=== PATIENT | male | born 1995 | race American Indian/Alaskan Native ===

== ENCOUNTER 2018-01-22 12:38 | Emergency (ER) | payer SELFPAY ==
[2018-01-22 12:58] VITALS: BP 134/80
[2018-01-22] MEDS ORDERED: ZOFRAN IV ONE (13:03)
[2018-01-22] MEDS ORDERED: DILAUDID IV ONE (13:03)
[2018-01-22] MEDS ORDERED: TORADOL IV ONE (13:03)
[2018-01-22] MEDS ORDERED: ATIVAN IV ONE (13:07)
[2018-01-22] MEDS ORDERED: NACL 0.9% 1000 ML 1,000 ML IV ONE (13:07)
[2018-01-22] MEDS ORDERED: MORPHINE IV ONE (13:07)
[2018-01-22] MEDS ORDERED: TORADOL ONE (13:28)
[2018-01-22] MEDS ORDERED: ZOFRAN ONE (13:29)
[2018-01-22] MEDS ORDERED: MORPHINE ONE (13:29)
[2018-01-22] MEDS ORDERED: ATIVAN ONE (13:29)
[2018-01-22] MEDS ORDERED: NACL 0.9% 1000 ML 1,000 ML ONE (13:30)
--- NOTE | 2018-01-22 14:41 | Emergency Department Report ---
HPI - General Chief Complaint: Dental/Oral Time Seen by Provider: 01/22/18 13:06 - HPI HPI: The patient is a 22-year-old male presents for evaluation of left jaw pain. The patient reports sudden onset of left jaw pain 30 minutes prior to arrival, constant since onset, chest and since severity, sharp and throbbing in quality, exacerbated with to the movement of the mouth. He states that he has been unable to close his mouth since onset, and that he has a history of right jaw dislocations. He denies trauma to the jaw, face, head, swelling, redness, chills, night sweats, fever. ED Past Medical Hx - Past Medical History Hx Seizures: Yes Hx Psychiatric Treatment: No - Surgical History Past Surgical History?: No - Social History Smoking Status: Current Some Day Smoker Substance Use Type: Marijuana - Medications Home Medications: Home Medications Medication Instructions Recorded Confirmed Last Taken Type levETIRAcetam [Keppra] 500 mg PO BID #90 tablet 02/26/14 10/27/15 Unknown Rx levETIRAcetam [Keppra TAB] 500 mg PO BID #60 tablet 10/28/15 Unknown Rx Ibuprofen [Motrin] 800 mg PO Q8HR PRN #15 tablet 01/22/18 Unknown Rx ED Review of Systems ROS: Stated complaint: LOCK JAW Other details as noted in HPI Constitutional: denies: fever ENT: reports jaw pain denies: throat or neck pain Respiratory: denies: cough, shortness of breath Cardiovascular: denies: chest pain Endocrine: denies unexplained weight loss or gain Gastrointestinal: denies: abdominal pain, nausea Genitourinary: denies: dysuria Musculoskeletal: denies: leg swelling Skin: denies: rash Neurological: denies: headache Hematological/Lymphatic: denies: easy bleeding or easy bruising Psych: denies sadness or hopelessness Physical Exam - Physical Exam Vital Signs: Vital Signs 01/22/18 01/22/18 12:53 13:59 Pulse Rate 64 Respiratory 18 Rate Blood Pressure 134/80 O2 Sat by Pulse 96 100 Oximetry Physical Exam: General: well-nourished, well-developed, no acute distress Head: Normocephalic, atraumatic Eyes: normal sclera HEENT: Mucous membranes are pink and moist, patient unable to close jaw, tenderness to palpation presents to the left TMJ Neck: trachea midline, neck supple, No neck stiffness, no cervical adenopathy Respiratory: Breath sounds equal bilaterally, no wheezing, rales, or rhonchi Cardio: S1 and S2 present, no murmurs, rubs, gallops, capillary refill is brisk Musc: No pitting edema Skin: No rash Neuro: no facial drooping, normal speech Psych: Normal affect ED Course Vital Signs 01/22/18 01/22/18 12:53 13:59 Pulse Rate 64 Respiratory 18 Rate Blood Pressure 134/80 O2 Sat by Pulse 96 100 Oximetry ED Medical Decision Making - Medical Decision Making The patient was seen and examined by myself. The patient is placed on a grade checker and continuous pulse ox. On initial evaluation, the patient was found to be in no distress. Evaluation orders were placed. The patient given pain medicine. CT scan of the face revealed bilateral mandibular condyle anterior dislocations. The patient was reevaluated and he shared that his jaw dislocation spontaneously reduced. The patient was reevaluated and reported that their symptoms were markedly improved. The patient is stable for discharge with outpatient follow-up. The patient is given follow-up and return instructions. The patient expressed understanding and agreed with the plan. The patient is discharged in stable condition. Critical care attestation.: If time is entered above; I have spent that time in minutes in the direct care of this critically ill patient, excluding procedure time. ED Disposition Clinical Impression: Sprain of jaw, left side, initial encounter Qualifiers: Encounter type: initial encounter Qualified Code(s): S03.42XA - Sprain of jaw, left side, initial encounter Closed dislocation of mandible Qualifiers: Encounter type: initial encounter Qualified Code(s): S03.00XA - Dislocation of jaw, unspecified side, initial encounter Disposition: - TO HOME OR SELFCARE Is pt being admited?: No Does the pt Need Aspirin: No Condition: Stable Instructions: Mandibular Dislocation (ED), Temporomandibular Disorder (ED) Referrals: [facility] [Outside] - 3-5 Days Forms: Work/School Release Form(ED) Time of Disposition: 14:42
--- NOTE | 2018-01-22 14:50 | Cat Scan Report ---
FINAL REPORT PROCEDURE: CT FACIAL BONES WO CON TECHNIQUE: Computerized tomography of the facial bones and soft tissues with axial and coronal sections performed from the cranial aspect of the frontal sinuses to the caudal portion of the mandible without contrast material. HISTORY: left jaw pain, unable to close mouth COMPARISON: No prior studies are available for comparison. FINDINGS: No fracture is seen. Mandibular condyles are translocated anteriorly more than expected. The mandibular condyle on the right projects along the anterior aspect of the condylar eminence. This is slightly more prominent on the left than the right. The glenoid fossa bilaterally are normal in appearance. The orbits, the zygomas and zygomatic arches as well as the nasal bone new of the paranasal sinuses appear intact. Paranasal sinuses are clear. IMPRESSION: Exaggerated anterior translocation of the mandibular condyles bilaterally. The condyles appear to be dislocated anteriorly. No fractures of the mandible or mandibular condyles are visualized. No facial fractures are seen.
== END 2018-01-22 15:01 | disposition home or self-care (01) ==
LOC: ED 12:38
DX: S03.02XA Dislocation of jaw, left side, initial encounter (principal); F17.200 Nicotine dependence, unspecified, uncomplicated; F12.10 Cannabis abuse, uncomplicated; X58.XXXA Exposure to other specified factors, initial encounter; Y93.89 Activity, other specified; Y99.8 Other external cause status; Y92.89 Other specified places as the place of occurrence of the external cause
CPT/HCPCS: 70486; 96361; 96374; 96375; 99284; J1885; J2060; J2270; J2405; J7030

== ENCOUNTER 2018-06-18 07:38 | Emergency (ER) | payer SELFPAY ==
[2018-06-18 07:45] VITALS: BP 133/80
== END 2018-06-18 08:10 | disposition left against medical advice (07) ==
LOC: ED 07:38
DX: R68.84 Jaw pain (principal); Z53.21 Procedure and treatment not carried out due to patient leaving prior to being seen by health care provider

== ENCOUNTER 2019-05-08 10:49 | Emergency (ER) | payer SELFPAY ==
[2019-05-08] MEDS ORDERED: DIPRIVAN 10 MG/ML IV ONE (11:43)
[2019-05-08] MEDS ORDERED: KEPPRA 1,000 MG/NS 0.75% 100ML 1,000 MG/100 ML BAG IV ONE (11:43)
[2019-05-08] MEDS ORDERED: SUBLIMAZE IV ONE (11:43)
[2019-05-08] MEDS ORDERED: NACL 0.9% 500 ML 500 ML IV ONE (11:44)
[2019-05-08] MEDS ORDERED: ZOFRAN IV ONE (11:44)
[2019-05-08] MEDS ORDERED: BOOSTRIX IM ONE (11:45)
--- NOTE | 2019-05-08 11:46 | Emergency Department Report ---
ED General Adult HPI - General Chief complaint: Seizure Stated complaint: SEIZURE/R DISLOCATED SHOULDER Time Seen by Provider: 05/08/19 11:27 Source: [place], [place] [facility], old records reviewed Mode of arrival: Stretcher Limitations: Physical Limitation - History of Present Illness Initial comments: This is a 23-year-old gentleman. This patient is not known to this provider previously. He does not have a primary care doctor. He thinks he is right-hand dominant. He reportedly has a history of seizure, and has not taken seizure medicine for about 2 years. Patient states being in his usual state of health earlier on this morning, and he feels like he had a seizure. He thinks that he fell onto his face and head. He has no midline neck pain. He has right-sided shoulder pain. He denies extremity weakness, numbness. He last ate last night. He can't recall his last tetanus vaccination status. He indicates his last convulsive event was around 2 years ago. He denies urinary symptoms. He denies lower extremity symptoms. He denies chest pain and abdominal pain. He has superficial abrasions on the face. -: Sudden Location: face, right, upper extremity Radiation: non-radiation Quality: aching Consistency: intermittent Improves with: rest Worsens with: movement - Related Data Previous Rx's Medication Instructions Recorded Last Taken Type levETIRAcetam [Keppra TAB] 500 mg PO BID #60 tablet 10/28/15 Unknown Rx Ibuprofen [Motrin 800 MG tab] 800 mg PO Q8HR PRN #15 tablet 12/20/18 Unknown Rx Acetaminophen [Non-Aspirin Extra 500 mg PO Q6HR PRN #30 tablet 05/08/19 Unknown Rx Strength] Ibuprofen [Motrin] 600 mg PO Q8H PRN #30 tablet 05/08/19 Unknown Rx Magnesium Oxide [Mag-Ox] 400 mg PO QDAY #14 tablet 05/08/19 Unknown Rx Potassium Chloride [K-Dur] 40 meq PO QDAY #15 tablet 05/08/19 Unknown Rx levETIRAcetam [Keppra TAB] 500 mg PO BID #60 tablet 05/08/19 Unknown Rx Allergies Allergy/AdvReac Type Severity Reaction Status Date / Time No Known Allergies Allergy Verified 05/08/19 11:47 ED Review of Systems ROS: Stated complaint: SEIZURE/R DISLOCATED SHOULDER Other details as noted in HPI Constitutional: denies: fever Eyes: denies: eye pain, eye discharge, vision change ENT: other (lip abrasion, superior lip pain). denies: dental pain Respiratory: denies: wheezing Cardiovascular: denies: chest pain Gastrointestinal: denies: vomiting Genitourinary: denies: dysuria Musculoskeletal: arthralgia, myalgia Skin: rash Neurological: denies: weakness, numbness, paresthesias, confusion Psychiatric: anxiety ED Past Medical Hx - Past Medical History Hx Seizures: Yes Hx Psychiatric Treatment: No Additional medical history: jaw injury - Social History Substance Use Type: Marijuana - Medications Home Medications: Home Medications Medication Instructions Recorded Confirmed Last Taken Type levETIRAcetam [Keppra TAB] 500 mg PO BID #60 tablet 10/28/15 Unknown Rx Ibuprofen [Motrin 800 MG tab] 800 mg PO Q8HR PRN #15 tablet 12/20/18 Unknown Rx Acetaminophen [Non-Aspirin Extra 500 mg PO Q6HR PRN #30 tablet 05/08/19 Unknown Rx Strength] Ibuprofen [Motrin] 600 mg PO Q8H PRN #30 tablet 05/08/19 Unknown Rx Magnesium Oxide [Mag-Ox] 400 mg PO QDAY #14 tablet 05/08/19 Unknown Rx Potassium Chloride [K-Dur] 40 meq PO QDAY #15 tablet 05/08/19 Unknown Rx levETIRAcetam [Keppra TAB] 500 mg PO BID #60 tablet 05/08/19 Unknown Rx ED Physical Exam - General Limitations: Physical Limitation General appearance: alert, anxious, in distress - Head Head exam: Present: atraumatic, normocephalic - Eye Eye exam: Present: normal appearance, PERRL, EOMI, other (visual acuity intact to finger counting and color perception at close distance). Absent: nystagmus - ENT ENT exam: Present: normal orophraynx, mucous membranes moist, TM's normal bilaterally, normal external ear exam, other (there is no nasal septal hematoma. There is no hemotympanum. There is no trismus, stridor or malocclusion. There is no dental tenderness). Absent: normal exam (superficial superior abrasion n oted. Soft tissue swelling noted.) - Neck Neck exam: Present: normal inspection, full ROM. Absent: tenderness, meningismus - Respiratory Respiratory exam: Present: normal lung sounds bilaterally. Absent: respiratory distress - Cardiovascular Cardiovascular Exam: Present: regular rate, normal rhythm, normal heart sounds. Absent: bradycardia, tachycardia, irregular rhythm, systolic murmur, diastolic murmur, rubs, gallop - GI/Abdominal GI/Abdominal exam: Present: soft. Absent: distended, tenderness, guarding, rebound, rigid, pulsatile mass - Rectal Rectal exam: Present: deferred - Extremities Exam Extremities exam: Present: full ROM (initial range of motion limited in the right shoulder. Full range of motion of bilateral wrists, hips, knees, ankles.), tenderness (there is tenderness noted to the right shoulder. There is a palpable deformity noted to the right shoulder. There is no distal right- sided humerus tenderness, there is no right elbow tenderness, and there is no right hand, wrist tenderness. Sensation intact to light touch in the bilateral deltoid, median, radial, ulnar distribution. Finger intrinsics and range of motion intact in the right upper extremity.), other (2+ pulses noted in the bilateral upper, lower extremities. There is no long bony tenderness, with the exception of proximal right humerus tenderness. There is no clavicular tenderness. Muscular compartments soft.) - Back Exam Back exam: Present: normal inspection. Absent: tenderness, CVA tenderness (R), CVA tenderness (L), paraspinal tenderness, vertebral tenderness - Neurological Exam Neurological exam: Present: alert, oriented X3, other (there is no facial droop. The tongue is midline. Extraocular movements are intact bilaterally. Patient speaking in full complete sentences. Shoulder shrug is intact bilaterally. Hearing is grossly intact bilaterally. Visual acuity intact to finger counting and color perception at a close distance. 5/5 strength 4 extremities. Sensa tion intact to light touch in 4 extremities.). Absent: motor sensory deficit - Psychiatric Psychiatric exam: Present: anxious - Skin Skin exam: Present: warm, abrasion ED Course Vital Signs 05/08/19 05/08/19 05/08/19 12:13 12:31 12:40 Temperature [ 98.3 F Pre-Procedure] Pulse Rate Pulse Rate [ 70 Intra-Procedure ] Pulse Rate [ 72 Post-Procedure] Pulse Rate [Pre 81 -Procedure] Respiratory Rate Respiratory 20 Rate [Intra- Procedure] Respiratory 11 L Rate [Post- Procedure] Respiratory 19 Rate [Pre- Procedure] Blood Pressure 121/62 [Intra- Procedure] Blood Pressure [Left] Blood Pressure 119/76 [Post-Procedure ] Blood Pressure 111/74 [Pre-Procedure] O2 Sat by Pulse Oximetry O2 Sat by Pulse 98 Oximetry [ Intra-Procedure ] O2 Sat by Pulse 98 Oximetry [Post -Procedure] O2 Sat by Pulse 100 Oximetry [Pre- Procedure] 05/08/19 05/08/19 12:55 13:05 Temperature [ Pre-Procedure] Pulse Rate 60 66 Pulse Rate [ Intra-Procedure ] Pulse Rate [ Post-Procedure] Pulse Rate [Pre -Procedure] Respiratory 17 17 Rate Respiratory Rate [Intra- Procedure] Respiratory Rate [Post- Procedure] Respiratory Rate [Pre- Procedure] Blood Pressure [Intra- Procedure] Blood Pressure 118/77 125/87 [Left] Blood Pressure [Post-Procedure ] Blood Pressure [Pre-Procedure] O2 Sat by Pulse 98 98 Oximetry O2 Sat by Pulse Oximetry [ Intra-Procedure ] O2 Sat by Pulse Oximetry [Post -Procedure] O2 Sat by Pulse Oximetry [Pre- Procedure] - Reevaluation(s) Reevaluation #1: 05/08/19 12:47 Differential diagnosis, including not limited to: Breakthrough seizure, soft tissue injury to the face, intracranial injury, facial injury, medication noncompliance, right-sided shoulder dislocation, superficial abrasions Assessment and plan: 23-year-old gentleman with history of seizure disorder, noncompliant with seizure medicines for around 2 years, with presumed breakthrough seizure today, and subsequent right-sided shoulder dislocation and superficial facial abrasions. The patient is clinically sober at this time. He is not distracted, and he has no midline cervical spine pain or tenderness. He is distally neurovascularly intact. He has a GCS of 15. No other obvious injuries noted on primary or secondary survey, with the exception of right-sided shoulder dislocation, and superficial abrasions to the face. Extensive discussion had with patient regarding need for moderate sedation for closed reduction of right shoulder. Risks, benefits, alternatives discussed with the patient, and he has provided informed consent for right sided shoulder reduction with moderate sedation. The right shoulder is reduced with one attempt with no difficulties. Postprocedure, the patient is distally neurovascularly intact. Patient loaded with Keppra prior to the procedure. Screening laboratory studies, EKG, CT scan of the brain, CT scan of the facial bones are pending at this time. Reevaluation #2: 05/08/19 13:25 X-ray report is reviewed and appreciated. Patient states range of motion is much improved. Has full passive range of motion of my exam. Clinically, the joint is appropriately reduced. Reevaluation #3: 05/08/19 14:40 CT scan of the brain is negative for acute disease. On physical exam, the right upper extremities clinically reduced. He remains neurovascularly intact. No additional seizures. Waiting comfortably for remainder of imaging studies to result. Reevaluation #4: 05/08/19 15:[address] scan negative. No additional convulsive events. Repeat examination unremarkable. Patient will be discharged at this time. - Moderate Sedation Indications: fracture/dislocation redu ASA Class: II Mallampati Airway Score: 1 Time of Last PO Intake: 22:30 (last ate last night) Preparation: cloth opener hand applied, pulse oximeter, capnometry used, supplemental O2 applied, suction/airway equipment at bedside Fentanyl: IV Fentanyl Dose: 25 IV Propofol Dose (mgs): 100 (50 mg of propofol administered by myself, 2) Complications: none Interventions: oxygen applied Patient Tolerated Procedure: well Additional Comments: Patient signed informed consent, with nurse Emperatriz Polo as a witness, present for the conversation. Patient reiterates that he has not eaten since last night. During the whole procedure, we are accompanied by respiratory therapist Jose Alfredo - Orthopedic Joint Reduction Joint #1 Consent Obtained: verbal consent, written consent, emergent situation Time Out Performed: Yes Side: right Joint Reduction Location: shoulder Analgesia: moderate sedation Shoulder Technique Used (if applicable): scapula manipulation Post-Reduction Neuro Exam: intact Post-Reduction Vascular Exam: intact Post Reduction X-Ray Obtained: Yes Post Reduction X-Ray Results: reduced Splint Applied: Yes Patient Tolerated Procedure: well - Orthopedic Splinting/Casting Injury #1 Side: right Upper Extremity Injury Location: shoulder Upper Extremity Immobilizer: sling/shoulder immobilize ED Medical Decision Making - Lab Data Result diagrams: 05/08/19 11:50 05/08/19 11:50 Vital Signs 05/08/19 12:13 Temperature [ 98.3 F Pre-Procedure] Pulse Rate [Pre 81 -Procedure] Respiratory 19 Rate [Pre- Procedure] Blood Pressure 111/74 [Pre-Procedure] O2 Sat by Pulse 100 Oximetry [Pre- Procedure] Lab Results 05/08/19 05/08/19 Range/Units 11:50 11:50 WBC 9.6 (4.5-11.0) K/mm3 RBC 5.16 H (3.65-5.03) M/mm3 Hgb 13.8 (11.8-15.2) gm/dl Hct 41.9 (35.5-45.6) % MCV 81 L (84-94) fl MCH 27 L (28-32) pg MCHC 33 (32-34) % RDW 14.0 (13.2-15.2) % Plt Count 211 (140-440) K/mm3 Sodium 145 (137-145) mmol/L Potassium 3.4 L (3.6-5.0) mmol/L Chloride 110.9 H (98-107) mmol/L Carbon Dioxide 22 (22-30) mmol/L Anion Gap 16 mmol/L BUN 6 L (9-20) mg/dL Creatinine 0.6 L (0.8-1.5) mg/dL Estimated GFR > 60 ml/min BUN/Creatinine Ratio 10 % Glucose 91 (75-100) mg/dL Calcium 7.4 L (8.4-10.2) mg/dL Magnesium 1.60 L (1.7-2.3) mg/dL Total Creatine Kinase 297 H (55-170) units/L - Radiology Data Radiology results: pending, image reviewed interpreted by me: X-ray #1 of the right shoulder demonstrates an inferior dislocation. Critical care attestation.: If time is entered above; I have spent that time in minutes in the direct care of this critically ill patient, excluding procedure time. ED Disposition Clinical Impression: Seizure disorder, Hypokalemia, Hypomagnesemia Dislocation of right shoulder joint Qualifiers: Encounter type: initial encounter Qualified Code(s): S43.004A - Unspecified dislocation of right shoulder joint, initial encounter Disposition: TO HOME OR SELFCARE Is pt being admited?: No Does the pt Need Aspirin: No Condition: Stable Instructions: Shoulder Dislocation (ED), Recurrent Seizures Adult (ED) Additional Instructions: Do not drive or operate motor vehicles for the next 6 months. Keep the shoulder sling in place, and follow up with an tooling specialist within the next 7 days, such as Dr. May. Take your seizure medication as directed, follow up with the primary care doctor or neurology specialist, such as other Dr. Williamson, or Dr. Schuler, within the next 2 weeks. It is very important to take seizure medication, as noncompliance with seizure medication may cause breakthrough seizure, which may cause , disability, paralysis, loss of quality of life. Take the potassium and magnesium supplementation as directed, take the pain medication as directed, and follow up with a primary care doctor within the next 3 weeks to have potassium and magnesium levels rechecked. Patient should not take the shoulder sling off until cleared by an tooling specialist. Rest, avoid heavy lifting, and avoid strenuous physical activities. Participate in physical activities as tolerated. Return to the emergency room right away the projectile vomiting, change in mental status, confusion, inability to tolerate liquid feeds,, worsened or different symptoms not present on the initial emergency room evaluation. Prescriptions: Potassium Chloride [K-Dur] 40 meq PO QDAY #15 tablet levETIRAcetam [Keppra TAB] 500 mg PO BID #60 tablet Magnesium Oxide [Mag-Ox] 400 mg PO QDAY #14 tablet Ibuprofen [Motrin] 600 mg PO Q8H PRN #30 tablet PRN Reason: Pain Acetaminophen [Non-Aspirin Extra Strength] 500 mg PO Q6HR PRN #30 tablet PRN Reason: Pain , Severe (7-10) Referrals: ADRIAN WILLIAMSON MD [Staff Physician] - 3-5 Days NANCY BROWN MD [Staff Physician] - 3-5 Days DEVENDRA MAY MD [Staff Physician] - 3-5 Days [facility] [Provider Group] - 3-5 Days
[2019-05-08] MEDS ORDERED: NACL 0.9% 1000 ML 1,000 ML ONE (11:47)
[2019-05-08 12:15] LABS: Hematocrit 41.9 % (35.5-45.6); Hemoglobin 13.8 gm/dl (11.8-15.2); Mean Corpuscular HGB Conc 33 % (32-34); Mean Corpuscular Volume 81 fl (84-94); Platelet Count 211 K/mm3 (140-440); Red Blood Count 5.16 M/mm3 (3.65-5.03)
[2019-05-08 12:44] LABS: BUN/Creatinine Ratio 10; Blood Urea Nitrogen 6 mg/dL (9-20); Calcium 7.4 mg/dL (8.4-10.2); Hemolysis Index 10
[2019-05-08] MEDS ORDERED: K-DUR PO ONE (12:50)
[2019-05-08] MEDS ORDERED: MAG-OX PO STA (12:50)
--- NOTE | 2019-05-08 13:16 | XRay Report ---
RIGHT SHOULDER ONE VIEW POSTREDUCTION INDICATION / CLINICAL INFORMATION: reduction. Right shoulder dislocation COMPARISON: None available. FINDINGS: The humeral head has been relocated with respect to the glenoid although it may be still mildly sublu xed. No other significant interval change Signer Name: Narinder PINON Signed: 05/08/2019 1:12 PM Workstation Name: [id number]
--- NOTE | 2019-05-08 13:59 | Cat Scan Report ---
CT head/brain wo con INDICATION: Seizure, facial trauma. TECHNIQUE: Routine CT head without contrast. All CT scans at this location are performed using CT dose reduction for ALARA by means of automated exposure control. COMPARISON: None. FINDINGS: BRAIN / INTRACRANIAL CONTENTS: No acute hemorrhage, brain edema, mass effect, or hydrocephalus. Diana l grajeda-white differentiation. No chronic infarct or focal atrophy. Normal brain volume and ventricula r/sulcal size for age. CALVARIUM/SKULL BASE/CRANIOCERVICAL JUNCTION: No evidence of fracture. ORBITS: No significant abnormality of visualized orbits. SINUSES / MASTOIDS: No significant abnormality of visualized sinuses and mastoid air cells. ADDITIONAL FINDINGS: None. IMPRESSION: 1. No acute post-traumatic intracranial abnormality. Signer Name: Colton Garcia MD Signed: 05/08/2019 1:54 PM Workstation Name: [id number]
[2019-05-08 14:40] VITALS: BP 125/87
--- NOTE | 2019-05-08 15:04 | XRay Report ---
RIGHT SHOULDER 2 VIEWS INDICATION / CLINICAL INFORMATION: right shoulder dislocation COMPARISON: None available. FINDINGS: BONES / JOINT(S): Anterior dislocation of the right glenohumeral joint with prominent Hill-Sachs defo rmity of the humeral head. SOFT TISSUES: No significant abnormality. ADDITIONAL FINDINGS: None. Signer Name: Arash Man MD Signed: 05/08/2019 2:59 PM Workstation Name: [id number]
--- NOTE | 2019-05-08 15:36 | Cat Scan Report ---
CT MAXILLOFACIAL WITHOUT CONTRAST INDICATION: Facial trauma. TECHNIQUE: All CT scans at this location are performed using CT dose reduction for ALARA by means of automated e xposure control. COMPARISON: None available. FINDINGS: FACIAL BONES: No fracture or other significant abnormality. PARANASAL SINUSES: No significant abnormality. ORBITS: No significant abnormality. VISUALIZED INTRACRANIAL STRUCTURES: No significant abnormality. ADDITIONAL FINDINGS: None. IMPRESSION: 1. No acute maxillofacial fracture or subluxation. Signer Name: Colton Garcia MD Signed: 05/08/2019 3:31 PM Workstation Name: [id number]
== END 2019-05-08 16:42 | disposition home or self-care (01) ==
LOC: ED 10:49
DX: S43.004A Unspecified dislocation of right shoulder joint, initial encounter (principal); G40.909 Epilepsy, unspecified, not intractable, without status epilepticus; E87.6 Hypokalemia; E83.42 Hypomagnesemia; F12.10 Cannabis abuse, uncomplicated; X58.XXXA Exposure to other specified factors, initial encounter; Y93.89 Activity, other specified; Y92.89 Other specified places as the place of occurrence of the external cause; Y99.8 Other external cause status
CPT/HCPCS: 23650; 36415; 70450; 70486; 73020; 73030; 80048; 82550; 83735; 85027; 90471; 90715; 96374; 96375; 99284; J1953; J2405; J2704; J3010; J7030

== ENCOUNTER 2019-11-08 21:17 | Emergency (ER) | payer SELFPAY ==
[2019-11-08 21:22] VITALS: BP 116/78
== END 2019-11-08 23:37 | disposition left against medical advice (07) ==
LOC: ED 21:17
DX: K08.89 Other specified disorders of teeth and supporting structures (principal); Z53.21 Procedure and treatment not carried out due to patient leaving prior to being seen by health care provider